=== PATIENT | male | born 1935 | race Caucasian/White ===

== ENCOUNTER 2018-11-15 22:48 | Inpatient (IN) | payer OTHER, BC ==
--- NOTE | 2018-11-15 22:49 | PDOC ---
History of Present Illness - General Stated Complaint: LEG PAIN History Source: Patient, Family - History of Present Illness Initial Comments: 11/15/18 23:42 The patient is an 83 year old male with a PMH of Dementia (Vascular vs. Alzheimers), HTN, COPD (not on home O2), Prostate CA (s/p resection), neuropathy , sick sinus syndrome (s/p pacemaker placement), recurrent UTI's and HLD who was BIBA after falling three times today. History obtained from and family @ bedside. State patient was found on the floor this morning in his bedroom. Patient ambulatory w/walker (baseline) after first fall. Patient later fell twice more today and was unable to bear weight following fall. Denies LOC as well as pre-fall chest pain, shortness of breath, lightheadedness , palpitations. Currently c/o LLE pain. Patient and patient's relocated yesterday to [place] from [place] to be closer to their adult children. notes h/o fall, first fall three years previous at which time patient was admitted to [facility] and pacemaker was placed. Most recent fall prior to today was 6 weeks previous. Patient's states patient's neurologist told patient he had neuropathy and gave him a referral to physical therapy however patient has not been able to start physical therapy 2/2 to their recent relocation to [place]. 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 Amol Lynn Neurologist: Dr. Sutton: Past History - Past Medical History Allergies/Adverse Reactions: Allergies Allergy/AdvReac Type Severity Reaction Status Date / Time No Known Allergies Allergy Verified 11/15/18 23:13 Review of Systems - Review of Systems Constitutional: No: Chills, Fever HEENTM: No: Recent change in vision Respiratory: No: Cough, Shortness of Breath Cardiac (ROS): No: Chest Pain, Lightheadedness, Palpitations, Syncope ABD/GI: No: Constipated, Diarrhea, Nausea, Vomiting *Physical Exam - Physical Exam Comments: 11/16/18 00:23 Awake, Alert, Verbal, moving all 4 extremities, pelvis stable General Appearance: Yes: Nourished, Appropriately Dressed HEENT: positive: Normal Voice, Hearing Grossly Normal Neck: positive: Trachea midline, Supple Respiratory/Chest: positive: Lungs Clear, Normal Breath Sounds Cardiovascular: positive: S1, S2 Extremity: positive: Normal Capillary Refill, Other (RLE: 2+ DP pulse, full ROM , anterior tibial tenderness; no tibial tuberosity tenderness) Integumentary: positive: Normal Color, Dry, Warm Neurologic: positive: Fully Oriented, Alert Heart Score/ECG Review - ECG Impressions Comment:: 11/16/18 01:46 HR 78, Ventricular paced rhythm, no SCHUYLER/STD/TWI, non-ischemic ECG ED Treatment Course - LABORATORY CBC & Chemistry Diagram: 11/15/18 23:50 11/15/18 23:50 Medical Decision Making - Medical Decision Making 11/15/18 23:51 83 year old male s/p multiple falls today. Baseline dementia. Frontal diagnosis: falls 2/2 UTI vs. Pacemaker dysfunction vs. worsening neuropathy vs. DE (less likely) vs TIA. VS unremarkable. Pelvis stable, full ROM of LLE, Anterior tibial tenderness (no tibial tuberosity tenderness on PE). Will obtain RLE imaging, Head CT, C-spine (C-spine precautions in place), Troponin x1 , Basic labs. Likely disposition is admission. Reassess. 11/15/18 23:59 Dr. Ly, Attending, discussed case w/patient's right of way man notes patient has h/o falls; MINH showed severe mitral regurgitation and diastolic dysfunction. 11/16/18 00:21 [employer] contacted for pacemaker interrogation. 11/16/18 00:25 My read of Tib/Fib XR shows no acute fracture ECG non-ischemic as documented in ECG section of EMR 11/16/18 00:26 CBC, CMP unremarkable Troponin pending 11/16/18 01:21 Patient reassessed @ bedside. Repeat BP 184/49 (Left) and 193/66 (Right) - will give OTD of patient's home HTN medications (Amlodipine 5 mg) and Losartan (100 mg) Head CT, UA pending Troponin (-) x1 11/16/18 01:[address] negative, C-spine negative. UA clean Will page hospitalist for admission as patient requires evaluation of frequent falls including full cardiac evaluation including pacemaker interrogation and MINH Patient and patient's @ bedside counseled on plan of care. 11/16/18 02:09 Case d/w Dr. Chavez - will admit to OBS Tele Clinical Impression: Falls 2/2 to neuropathy vs. pacemaker dysfunction vs. cardiac pathology including MR, CHF *DC/Admit/Observation/Transfer Diagnosis at time of Disposition: Fall - Discharge Dispostion Condition at time of disposition: Fair Decision to Admit order: Yes - Referrals - Patient Instructions - Post Discharge Activity
[2018-11-15 23:14] VITALS: BMI 25.8
--- NOTE | 2018-11-15 23:15 | PDOC ---
Attending Attestation - HPI HPI: 11/15/18 23:29 The patient is a 83 year old male, with a significant PMH of dementia, history of falls, peripheral neuropathy, hypertension, recurrent UTI, arrhythmia s/p pacemaker placement, COPD, who presents to the emergency department for evaluation of multiple falls occurring earlier today. As per , the patient was noted to fall several times today. She states the first two falls the patient was able to stand up with assistance. However, for the third fall the patient was unable to get back up and EMS was notified. At presentation, the patient has a complaint of RLE pain. The patient history is limited secondary to dementia. The patient denies chest pain, shortness of breath, headache and dizziness. Denies fever, chills, nausea, vomit, diarrhea and constipation. Denies dysuria, frequency, urgency and hematuria. Allergies: NKA Documentation prepared by Chandrakant Perez, acting as medical program specialist for Enedina Ly MD. - Physicial Exam PE: 11/15/18 23:30 GENERAL: Awake and alert, in no acute distress HEAD: No signs of trauma EYES: PERRLA, EOMI, sclera anicteric, conjunctiva clear ENT: Auricles normal inspection, hearing grossly normal, nares patent, oropharynx clear without exudates. Moist mucosa NECK: Normal ROM, supple, no lymphadenopathy, JVD, or masses LUNGS: Breath sounds equal, clear to auscultation bilaterally. No wheezes, and no crackles HEART: Regular rate and rhythm, normal S1 and S2, no murmurs, rubs or gallops ABDOMEN: Soft, nontender, normoactive bowel sounds. No guarding, no rebound. No masses EXTREMITIES: (+) Right tibia fibula irregular medial aspect. (+) Distal tibial step off, unclear if hematoma and soft tissue or bone. (+) Tenderness to palpation RLE. PT and DP pulses intact. No clubbing or cyanosis. No cords or erythema. NEUROLOGICAL: Cranial nerves II through XII grossly intact. Normal speech. SKIN: Warm, Dry, normal turgor, no rashes or lesions noted. <Chandrakant Perez - Last Filed: 11/15/18 23:29> - Resident Resident Name: Paz Mckeon - ED Attending Attestation I have performed the following: I have examined & evaluated the patient, The case was reviewed & discussed with the resident, I agree w/resident's findings & plan - Medical Decision Making 11/15/18 23:30 Pt takes flomax 0.4 daily atorvastatin 10 mg amlodipine 5mg losartan 100mg advair 250/50 finasteride 5mg Namzaric 14--10 CP 24 (memantine/donepazil- for alzheimers) Asa 81mg Pt's heel stainer is Dr. Genie Segura urologist John Paul Zamarripa [phone] vasc surg Eezquiel King [phone] Cards [phone] Sutton [phone] Ted Luna [phone] 11/15/18 23:36 11/16/18 07:[address] normal; he will be admitted for syncope workup <Enedina Ly - Last Filed: 11/16/18 07:32>
[2018-11-15] MEDS ORDERED: ACETAMINOPHEN 1000 MG/100 ML VIAL (NON FORMULARY) IVPB ONE (23:56)
[2018-11-15 23:59] LABS: BASO % 0.5 % (0-2.0); HEMATOCRIT 37.9 % (35.4-49); HEMOGLOBIN 13.1 GM/dL (11.7-16.9); LYMPH % 11.7 % (8-40); MCH 31.2 pg (25.7-33.7); MCHC 34.7 g/dl (32.0-35.9); MEAN PLT VOLUME 10.9 fl (7.5-11.1); MONO % 6.9 % (3.8-10.2); NEUT % 79.9 % (42.8-82.8); PLATELET COUNT 235 K/MM3 (134-434); RBC 4.21 M/mm3 (4.00-5.60); RDW 14.5 % (11.9-15.9); WHITE BLOOD COUNT 11.4 K/mm3 (4.0-10.0)
[2018-11-16 00:19] LABS: ALBUMIN 3.4 g/dl (3.4-5.0); ALK PHOS 87 U/L (45-117); ANION GAP 7 MMOL/L (8-16); BILIRUBIN,TOTAL 0.4 mg/dL (0.2-1); BLOOD UREA NITROGEN 30 mg/dL (7-18); CALCIUM 9.1 mg/dL (8.5-10.1); CHLORIDE 108 mmol/L (98-107); CO2 29 mmol/L (21-32); CREATININE 1.1 mg/dL (0.55-1.3); GLUCOSE,RANDOM 116 mg/dL (74-106); MAGNESIUM 2.4 mg/dL (1.8-2.4); POTASSIUM 3.8 mmol/L (3.5-5.1); SGOT/AST 31 U/L (15-37); SGPT/ALT 35 U/L (13-61); SODIUM 145 mmol/L (136-145); TOT PROT 6.7 g/dl (6.4-8.2)
[2018-11-16] MEDS ORDERED: amLODIPine BESYLATE 5 MG TABLET (FP) PO ONE ×2 (00:53→23:00)
[2018-11-16] MEDS ORDERED: LOSARTAN POTASSIUM 50 MG TABLET (FP) PO ONE (00:53)
[2018-11-16] MEDS ORDERED: amLODIPine BESYLATE 5 MG TABLET (FP) ONE (00:56)
[2018-11-16 01:56] LABS: URINE APPEARANCE CLEAR; URINE BILIRUBIN NEGATIVE (<2.0 mg/dL); URINE COLOR YELLOW; URINE GLUCOSE (UA) NEGATIVE (NEGATIVE); URINE KETONE NEGATIVE (NEGATIVE); URINE LEUK ESTERASE NEGATIVE (NEGATIVE); URINE NITRITE NEGATIVE (NEGATIVE); URINE PROTEIN NEGATIVE (NEGATIVE); URINE UROBILINOGEN NEGATIVE mg/dL (0.2-1.0)
--- NOTE | 2018-11-16 02:03 | HP ---
CHIEF COMPLAINT: frequent falls PCP: none History obtained from EMR as patient has baseline dementia and unreliable for history and family is not available at bedside. HISTORY OF PRESENT ILLNESS: 83 year old male with a PMH of Dementia (Vascular vs. Alzheimers), HTN, COPD ( not on home O2), Prostate CA (s/p resection), neuropathy, sick sinus syndrome (s /p pacemaker placement), recurrent UTI's dyslipidemia brought in by ambulance after fall at home x3 on 11/15. Upon questioning, patient says his right leg was giving him issues. Denied LOC. At baseline is ambulatory with walker. # ER course was notable for: (1) CT spine (2) head ct (3) Recent Travel: none reported PAST MEDICAL HISTORY: Dementia (Vascular vs. Alzheimers), HTN, COPD (not on home O2), Prostate CA (s/ p resection), neuropathy, sick sinus syndrome (s/p pacemaker placement), recurrent UTIs, DLP PAST SURGICAL HISTORY: prostate resection Social History: Smoking: no Alcohol: no Drugs: no Family History: no Allergies No Known Allergies Allergy (Verified 11/15/18 23:13) HOME MEDICATIONS: REVIEW OF SYSTEMS CONSTITUTIONAL: Absent: fever, chills, diaphoresis, generalized weakness, malaise, loss of appetite, weight change HEENT: Absent: rhinorrhea, nasal congestion, throat pain, throat swelling, difficulty swallowing, mouth swelling, ear pain, eye pain, visual changes CARDIOVASCULAR: Absent: chest pain, syncope, palpitations, irregular heart rate, lightheadedness , peripheral edema RESPIRATORY: Absent: cough, shortness of breath, dyspnea with exertion, orthopnea, wheezing, stridor, hemoptysis GASTROINTESTINAL: Absent: abdominal pain, abdominal distension, nausea, vomiting, diarrhea, constipation, melena, hematochezia GENITOURINARY: Absent: dysuria, frequency, urgency, hesitancy, hematuria, flank pain, genital pain MUSCULOSKELETAL: Absent: arthralgia, joint swelling, back pain, neck pain Present- myalgia, SKIN: Absent: rash, itching, pallor HEMATOLOGIC/IMMUNOLOGIC: Absent: easy bleeding, easy bruising, lymphadenopathy, frequent infections ENDOCRINE: Absent: unexplained weight gain, unexplained weight loss, heat intolerance, cold intolerance NEUROLOGIC: Absent: headache, focal weakness or paresthesias, dizziness, unsteady gait, seizure, mental status changes, bladder or bowel incontinence PSYCHIATRIC: Absent: anxiety, depression, suicidal or homicidal ideation, hallucinations. PHYSICAL EXAMINATION Vital Signs - 24 hr 11/15/18 22:48 Temperature 98.2 F Pulse Rate 103 H Respiratory 18 Rate Blood Pressure 195/101 H O2 Sat by Pulse 96 Oximetry (%) GENERAL: disoriented HEAD: Normal with no signs of trauma. EYES: Pupils equal, round and reactive to light, extraocular movements intact, sclera anicteric, conjunctiva clear. No lid lag. EARS, NOSE, THROAT: Ears normal, nares patent, oropharynx clear without exudates. Moist mucous membranes. NECK: Normal range of motion, supple without lymphadenopathy, JVD, or masses. LUNGS: Breath sounds equal, clear to auscultation bilaterally. No wheezes, and no crackles. No accessory muscle use. HEART: Regular rate and rhythm, normal S1 and S2 without murmur, rub or gallop. ABDOMEN: Soft, nontender, not distended, normoactive bowel sounds, no guarding, no rebound, no masses. No hepatomegaly or splenomegaly. MUSCULOSKELETAL: Normal range of motion at all joints. No bony deformities or tenderness. No CVA tenderness. UPPER EXTREMITIES: 2+ pulses, warm, well-perfused. No cyanosis. No clubbing. No peripheral edema. LOWER EXTREMITIES: 2+ pulses, warm, well-perfused. No tenderness. No peripheral edema. NEUROLOGICAL: disoriented to place and time PSYCHIATRIC: Cooperative. Good eye contact. Appropriate mood and affect. SKIN: Warm, dry, normal turgor, no rashes or lesions noted, normal capillary refill. Laboratory Results - last 24 hr 11/15/18 11/15/18 11/16/18 23:50 23:50 01:39 WBC 11.4 H RBC 4.21 Hgb 13.1 Hct 37.9 MCV 90.0 MCH 31.2 MCHC 34.7 RDW 14.5 Plt Count 235 MPV 10.9 Absolute Neuts (auto) 9.1 H Neutrophils % 79.9 Lymphocytes % 11.7 Monocytes % 6.9 Eosinophils % 1.0 Basophils % 0.5 Nucleated RBC % 0 Sodium 145 Potassium 3.8 Chloride 108 H Carbon Dioxide 29 Anion Gap 7 L BUN 30 H Creatinine 1.1 Creat Clearance w eGFR > 60 Random Glucose 116 H Calcium 9.1 Magnesium 2.4 Total Bilirubin 0.4 AST 31 ALT 35 Alkaline Phosphatase 87 Creatine Kinase 155 Creatine Kinase Index 2.0 CK-MB (CK-2) 3.2 Troponin I 0.03 Total Protein 6.7 Albumin 3.4 Urine Color Yellow Urine Appearance Clear Urine pH 6.0 Ur Specific [place] 1.019 Urine Protein Negative Urine Glucose (UA) Negative Urine Ketones Negative Urine Blood Negative Urine Nitrite Negative Urine Bilirubin Negative Urine Urobilinogen Negative Ur Leukocyte Esterase Negative imaging of right lower ext - reviewed. ekg reviewed. ASSESSMENT/PLAN: #83yo man brought in the ED after multiple falls at home. Physical exam and imaging studies unremarkable for signs of trauma. Falls likely mechanical in nature. Should r/o orthostatic hypotension. -observation -physical therapy evaluation -bed rest -fall precautions -f/u official imaging study reports- head CT, C spine CT, right lower extremity xrays -check orthostatics -transthoracic echo -cardiology eval for pacemaker interrogation #HTN- uncontrolled -c/w losartan and amlodipine #COPD -c/w advair #DVT ppx -SCDs Visit type - Emergency Visit Emergency Visit: Yes Care time: The patient presented to the Emergency Department on the above date and was hospitalized for further evaluation of their emergent condition. - New Patient This patient is new to me today: Yes Date on this admission: 11/16/18 - Critical Care Critical Care patient: No
[2018-11-16] MEDS ORDERED: SODIUM CHLORIDE 1,000 ML IV SCH (02:15)
[2018-11-16] MEDS ORDERED: TAMSULOSIN HCL 0.4 MG CAP PO ONE (02:38)
[2018-11-16] MEDS ORDERED: TAMSULOSIN HCL 0.4 MG CAP ONE (05:26)
[2018-11-16 06:41] LABS: BASO % 0.4 % (0-2.0); EOS % 2.2 % (0-4.5); HEMATOCRIT 38.2 % (35.4-49); HEMOGLOBIN 12.5 GM/dL (11.7-16.9); LYMPH % 13.1 % (8-40); MCH 29.6 pg (25.7-33.7); MCHC 32.7 g/dl (32.0-35.9); MEAN CELL VOLUME 90.7 fl (80-96); MEAN PLT VOLUME 10.5 fl (7.5-11.1); MONO % 8.4 % (3.8-10.2); NEUT % 75.9 % (42.8-82.8); PLATELET COUNT 197 K/MM3 (134-434); RBC 4.21 M/mm3 (4.00-5.60); RDW 14.6 % (11.9-15.9); WHITE BLOOD COUNT 9.9 K/mm3 (4.0-10.0)
[2018-11-16 07:06] LABS: ANION GAP 6 MMOL/L (8-16); BLOOD UREA NITROGEN 26 mg/dL (7-18); CALCIUM 8.8 mg/dL (8.5-10.1); CHLORIDE 110 mmol/L (98-107); CO2 28 mmol/L (21-32); CREATININE 0.9 mg/dL (0.55-1.3); GLUCOSE,RANDOM 107 mg/dL (74-106); POTASSIUM 3.5 mmol/L (3.5-5.1); SODIUM 143 mmol/L (136-145)
[2018-11-16] MEDS: ASPIRIN 81 MG CHEWABLE TABLETS PO SCH (09:31)
[2018-11-16] MEDS: LOSARTAN POTASSIUM 50 MG TABLET (FP) PO SCH (09:31)
[2018-11-16] MEDS: amLODIPine BESYLATE 5 MG TABLET (FP) PO SCH (09:31)
[2018-11-16] MEDS: FLUTICASONE/SALMETEROL 100 MCG/50 MCG DISKUS IH SCH ×2 (10:00→22:54)
--- NOTE | 2018-11-16 16:42 | CON.CARD ---
Consult Consult Specialty:: cardiology Reason for Consultation:: falls - History of Present Illness Chief Complaint: Pt is disoriented x 3; c/o how the sheets are arranged; unsure if family was visiting; denies chest pain or dizziness History of Present Illness: The patient is an 83 year old male with a PMH of Dementia (Vascular vs. Alzheimers), HTN, COPD (not on home O2), Prostate CA (s/p resection), neuropathy , sick sinus syndrome (s/p pacemaker placement), recurrent UTI's and HLD who was BIBA after falling three times today. History obtained from and family @ bedside. State patient was found on the floor this morning in his bedroom. Patient ambulatory w/walker (baseline) after first fall. Patient later fell twice more today and was unable to bear weight following fall. Denies LOC as well as pre-fall chest pain, shortness of breath, lightheadedness , palpitations. Currently c/o LLE pain. Patient and patient's relocated yesterday to [place] from [place] to be closer to their adult children. notes h/o fall, first fall three years previous at which time patient was admitted to [facility] and pacemaker was placed. Most recent fall prior to today was 6 weeks previous. Patient's states patient's neurologist told patient he had neuropathy and gave him a referral to physical therapy however patient has not been able to start physical therapy 2/2 to their recent relocation to [place]. 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 Amol Lynn Neurologist: Dr. Sutton: - History Source History Provided By: Medical Record Limitations to Obtaining History: Dementia - Past Medical History MS ACCESS DATABASE DEVELOPER: Yes: Alzheimer's Cardio/Vascular: Yes: HTN, Hyperlipdemia Pulmonary: Yes: COPD - Past Surgical History Past Surgical History: Yes: Permanent Pacemaker - Alcohol/Substance Use Hx Alcohol Use: No - Smoking History Smoking history: Former smoker Have you smoked in the past 12 months: No If you are a former smoker, when did you quit?: 30 yrs ago Home Medications - Allergies Allergies/Adverse Reactions: Allergies Allergy/AdvReac Type Severity Reaction Status Date / Time No Known Allergies Allergy Verified 11/15/18 23:13 Review of Systems Unable to obtain ROS, reason: dementia - Risk Factors Known Risk Factors: Yes: Age, Gender, Hypercholesterolemia, Hypertension, Physical Inactivity, Other (copd; dementia) Vital Signs: Vital Signs Temperature 98 F 11/16/18 14:43 Pulse Rate 70 11/16/18 14:43 Respiratory Rate 18 11/16/18 14:43 Blood Pressure 146/54 L 11/16/18 14:43 O2 Sat by Pulse Oximetry (%) 97 11/16/18 10:00 Constitutional: Yes: Anxious, Thin Eyes: Yes: WNL HENT: Yes: WNL Neck: Yes: WNL Respiratory: Yes: WNL Gastrointestinal: Yes: Soft Renal/: No: Anuria Cardiovascular: Yes: Regular Rate and Rhythm JVD: No Carotid Bruit: No PMI: Non-Displaced Heart Sounds: Yes: S1, Split S2 Murmur: Yes: Systolic Murmur, Grade 2 Musculoskeletal: Yes: Muscle Weakness Extremities: Yes: WNL Edema: No Peripheral Pulses WNL: Yes Integumentary: Yes: WNL Neurological: Yes: Confusion, Weakness Psychiatric: Yes: Other (dementia) - Other Data Labs, Other Data: CBC, BMP 11/16/18 06:14 11/16/18 06:00 Troponin, BNP 11/15/18 23:50 Troponin I 0.03 Troponin, BNP 11/15/18 23:50 Troponin I 0.03 Abnormal Lab Results 11/16/18 06:00 Chloride 110 H Anion Gap 6 L BUN 26 H Random Glucose 107 H Prior Cardiac Procedures: Other (PPM for SSS) Imaging - Results EKG: Image Reviewed (ventricula paced rhythm) Problem List - Problems (1) Falls Assessment/Plan: r/o syncope. Hx neuropathy. F/u orthostatic vital signs. Avoid dehydration. ECHO for LVEF. Carotid artery US. Code(s): W19.XXXA - UNSPECIFIED FALL, INITIAL ENCOUNTER (2) History of permanent cardiac pacemaker placement Code(s): Z95.0 - PRESENCE OF CARDIAC PACEMAKER (3) Neuropathy Code(s): G62.9 - POLYNEUROPATHY, UNSPECIFIED (4) COPD (chronic obstructive pulmonary disease) Code(s): J44.9 - CHRONIC OBSTRUCTIVE PULMONARY DISEASE, UNSPECIFIED (5) HTN (hypertension) Assessment/Plan: on losartan and amlodipine (consider increasing the latter to 10 mg daily, in view of continued BP elevation). Code(s): I10 - ESSENTIAL (PRIMARY) HYPERTENSION (6) Hyperlipidemia Assessment/Plan: f/u lipid panel. on atorvastatin. Code(s): E78.5 - HYPERLIPIDEMIA, UNSPECIFIED (7) Dementia Assessment/Plan: F/u workup. Advanced condition must be taken into account before any aggressive measures are taken for physical condition. Code(s): F03.90 - UNSPECIFIED DEMENTIA WITHOUT BEHAVIORAL DISTURBANCE (8) Prostate CA Code(s): C61 - MALIGNANT NEOPLASM OF PROSTATE
--- NOTE | 2018-11-16 16:56 | EKG ---
Test Reason : Blood Pressure : / mmHG Vent. Rate : 078 BPM Atrial Rate : 078 BPM P-R Int : 000 ms QRS Dur : 168 ms QT Int : 440 ms P-R-T Axes : 053 -57 098 degrees QTc Int : 501 ms POOR DATA QUALITY, INTERPRETATION MAY BE ADVERSELY AFFECTED Ventricular-paced rhythm ABNORMAL ECG NO PREVIOUS ECGS AVAILABLE Confirmed by MD Abisai, Omar ([id number]) on 11/16/2018 4:55:56 PM Referred By: Confirmed By:Omar Barone MD
[2018-11-16] MEDS ORDERED: PT OWN MED DRAWER 7, Y5N ONE (22:46)
[2018-11-16] MEDS: ATORVASTATIN CA 10 MG TABLET (FP) PO SCH (22:54)
[2018-11-17] MEDS ORDERED: hydrALAZINE HCL 20 MG/ML VIAL IVPUSH ONE (02:41)
[2018-11-17] MEDS: amLODIPine BESYLATE 5 MG TABLET (FP) PO SCH (09:17)
[2018-11-17] MEDS: LOSARTAN POTASSIUM 50 MG TABLET (FP) PO SCH (09:17)
[2018-11-17] MEDS: ASPIRIN 81 MG CHEWABLE TABLETS PO SCH (09:17)
[2018-11-17 09:46] LABS: BASO % 0.3 % (0-2.0); HEMATOCRIT 37.9 % (35.4-49); HEMOGLOBIN 13.4 GM/dL (11.7-16.9); LYMPH % 10.7 % (8-40); MCH 31.4 pg (25.7-33.7); MCHC 35.4 g/dl (32.0-35.9); MEAN CELL VOLUME 88.6 fl (80-96); MEAN PLT VOLUME 10.2 fl (7.5-11.1); PLATELET COUNT 251 K/MM3 (134-434); RBC 4.28 M/mm3 (4.00-5.60); RDW 14.4 % (11.9-15.9); WHITE BLOOD COUNT 10.7 K/mm3 (4.0-10.0)
[2018-11-17] MEDS: FLUTICASONE/SALMETEROL 100 MCG/50 MCG DISKUS IH SCH ×2 (10:26→21:45)
[2018-11-17 10:27] LABS: ALBUMIN 3.1 g/dl (3.4-5.0); ALK PHOS 80 U/L (45-117); ANION GAP 9 MMOL/L (8-16); BILIRUBIN,TOTAL 0.8 mg/dL (0.2-1); BLOOD UREA NITROGEN 19 mg/dL (7-18); CALCIUM 8.7 mg/dL (8.5-10.1); CHLORIDE 108 mmol/L (98-107); CO2 24 mmol/L (21-32); GLUCOSE,RANDOM 139 mg/dL (74-106); PHOSPHOROUS 3.2 mg/dL (2.5-4.9); POTASSIUM 3.6 mmol/L (3.5-5.1); SGOT/AST 15 U/L (15-37); SGPT/ALT 26 U/L (13-61); SODIUM 142 mmol/L (136-145); TOT PROT 6.1 g/dl (6.4-8.2)
--- NOTE | 2018-11-17 10:55 | ECHO ---
Version: 1 Name: TRAY ALVARADO Exam: Adult Echocardiogram Study Date: 11/17/2018, 7:53 AM Age: 83 Years MMode/2D Measurements & Calculations IVSd: 1.22 cm LVIDs: 3.1 cm LVIDd: 4.4 cm LVPWd: 1.27 cm Ao root diam: 2.8 cm LA dimension: 3.3 cm Doppler Measurements & Calculations MV E max sanford: 61.8 cm/sec Med E/e': 11.4 MV A max sanford: 166.3 cm/sec Med Peak E' Sanford: 5.4 cm/sec MV E/A: 0.37 Lat E/e': 14.6 Lat Peak E' Sanford: 4.2 cm/sec AI P1/2t: 441.4 msec TR max sanford: 299.3 cm/sec TR max P.9 mmHg Procedure The study was technically difficult with many images being suboptimal in quality. Left Ventricle The left ventricular size, thickness and function are normal. The left ventricular ejection fraction is normal. Septal motion is consistent with conduction abnormality. Right Ventricle The right ventricle is normal in size and function. There is a pacemaker lead in the right ventricle . Atria Normal left and right atrial size and function. Mitral Valve There is moderate mitral valve thickening. There is no mitral valve stenosis. There is mild to moder ate mitral regurgitation. Tricuspid Valve There is mild to moderate tricuspid valve thickening. There is no tricuspid stenosis. There is mild to moderate tricuspid regurgitation. Right ventricular systolic pressure is elevated at 40-50mmHg. Aortic Valve The aortic valve is not well visualized. No hemodynamically significant valvular aortic stenosis. Mi ld to moderate aortic regurgitation. Pulmonic Valve The pulmonic valve is not well visualized. Great Vessels The aortic root is normal size. Pericardium/Pleura There is no pericardial effusion. Summary Statements The left ventricular size, thickness and function are normal The left ventricular ejection fraction is normal. There is a pacemaker lead in the right ventricle. There is mild to moderate tricuspid regurgitation. Right ventricular systolic pressure is elevated at 40-50mmHg. The study was technically difficult with many images being suboptimal in quality. There is moderate mitral valve thickening. Mild to moderate aortic regurgitation. There is mild to moderate mitral regurgitation. MD Terry Marley 11/17/2018, 10:54 AM Ordering Physician: Sandor Chavez Referring Physician: Sandor Chavez Performed By: Radha Hernandez
--- NOTE | 2018-11-17 11:39 | PN ---
Physical Exam: SUBJECTIVE: Patient seen and examined this AM. He currently has no complaints and states that he is feeling better today. OBJECTIVE: Vital Signs Period Temp Pulse Resp BP Sys/Dale Pulse Ox Last 24 Hr 97.3 F-98.3 F 70-84 18-20 140-188/54-86 95 GENERAL: Alert, oriented only to self, no acute distress HEAD: Normocephalic, atraumatic. EYES: PERRL, no scleral icterus EARS, NOSE, THROAT: oropharynx clear without exudates. Moist mucous membranes. NECK: supple without lymphadenopathy LUNGS: CTA b/l, no crackles or wheezes HEART: Regular rate and rhythm, normal S1 and S2 without murmur ABDOMEN: Soft, nontender to palpation, normoactive bowel sounds MUSCULOSKELETAL: No bony deformities or tenderness. EXTREMITIES: 2+ pulses, warm, well-perfused. No peripheral edema. NEUROLOGICAL: Cranial nerves II-XII grossly intact. Normal speech. PSYCHIATRIC: Cooperative. Good eye contact. Appropriate mood and affect. SKIN: Warm, dry, no rashes or lesions noted Laboratory Results - last 24 hr 11/17/18 11/17/18 09:15 09:15 WBC 10.7 H RBC 4.28 Hgb 13.4 Hct 37.9 MCV 88.6 MCH 31.4 MCHC 35.4 RDW 14.4 Plt Count 251 D MPV 10.2 Absolute Neuts (auto) 8.9 H Neutrophils % 83.0 H Lymphocytes % 10.7 Monocytes % 5.0 Eosinophils % 1.0 Basophils % 0.3 Nucleated RBC % 0 Sodium 142 Potassium 3.6 Chloride 108 H Carbon Dioxide 24 Anion Gap 9 BUN 19 H Creatinine 1.0 Creat Clearance w eGFR > 60 Random Glucose 139 H Calcium 8.7 Phosphorus 3.2 Magnesium 2.0 Total Bilirubin 0.8 AST 15 ALT 26 Alkaline Phosphatase 80 Total Protein 6.1 L Albumin 3.1 L Active Medications Generic Name Dose Route Start Last Admin Trade Name Freq PRN Reason Stop Dose Admin Amlodipine Besylate 5 mg 11/16/18 10:00 11/17/18 09:17 Norvasc - PO 5 mg DAILY MONTY Administration Aspirin 81 mg 11/16/18 10:00 11/17/18 09:17 Asa - PO 81 mg DAILY MONTY Administration Atorvastatin Calcium 10 mg 11/16/18 22:00 11/16/18 22:54 Lipitor - PO 10 mg HS MONTY Administration Losartan Potassium 100 mg 11/16/18 10:00 11/17/18 09:17 Cozaar - PO 100 mg DAILY MONTY Administration Fluticasone/Salmeterol 1 puff 11/16/18 10:00 11/17/18 10:26 Advair 100mcg/50mcg - IH 1 puff BID MONTY Administration ASSESSMENT/PLAN: 83yo man brought in the ED after multiple falls at home. Physical exam and imaging studies unremarkable for signs of trauma. Falls likely mechanical in nature. Repeated Falls -Pt with numerous repeated falls, likely mechanical in nature -PT eval recommended SNF for rehab -Extensive imaging negative for fracture or IC bleed -Cardiology consult appreciated -Carotid US pending -ECHO normal LV size, function, EF HTN -Currently uncontrolled -Norvasc 5 mg PO Daily -Losartan 100 mg PO Daily -Has required addition doses of norvasc and required hydralazine overnight -Will monitor and increase as needed COPD -Advair 1 puff BID DVT Prophylaxis -Heparin 5000 units SQ TID FEN -Fluids: none -Electrolytes: No electrolyte abnormalities, BMP in AM -Nutrition: Na controlled diet Disposition Telemetry, can likely transfer to med/surg pending echo Visit type - Emergency Visit Emergency Visit: Yes ED Registration Date: 11/17/18 Care time: The patient presented to the Emergency Department on the above date and was hospitalized for further evaluation of their emergent condition. - New Patient This patient is new to me today: Yes Date on this admission: 11/17/18 - Critical Care Critical Care patient: No
[2018-11-17] MEDS ORDERED: PT OWN MED DRAWER 7, Y5N ONE (13:41)
[2018-11-17] MEDS: HEPARIN NA (PORCINE) 5,000 UNITS/ML 1ML VIAL SQ SCH ×2 (15:02→21:44)
--- NOTE | 2018-11-17 16:28 | PN ---
Teaching Attending Note Name of Resident: Ventura Romero ATTENDING PHYSICIAN STATEMENT I saw and evaluated the patient. I reviewed the resident's note and discussed the case with the resident. I agree with the resident's findings and plan as documented. SUBJECTIVE: this is an 83 year old male with a PMH of Dementia, HTN, COPD, Prostate CA (s/p resection), neuropathy, sick sinus syndrome (s/p pacemaker placement), recurrent UTI's, dyslipidemia admitted for evaluation of syncope. OBJECTIVE: s1 and s2 RRR lungs CTA good air entry abdomen soft non-tender ASSESSMENT AND PLAN: Repeated Falls possible due to gait instability -PT eval recommended SNF for rehab HTN -d/c amlodipine 5 mg PO Daily and start amlodipine increase to 10mg -Losartan 100 mg PO Daily COPD -Advair 1 puff BID DVT Prophylaxis -Heparin 5000 units SQ TID FEN -Fluids: none -Electrolytes: No electrolyte abnormalities, BMP in AM -Nutrition: Na controlled diet
[2018-11-17] MEDS: ATORVASTATIN CA 10 MG TABLET (FP) PO SCH (21:44)
[2018-11-18] MEDS: LOSARTAN POTASSIUM 50 MG TABLET (FP) PO SCH ×2 (05:47→09:13)
[2018-11-18] MEDS: amLODIPine BESYLATE 5 MG TABLET (FP) PO SCH ×2 (05:48→09:13)
[2018-11-18] MEDS: HEPARIN NA (PORCINE) 5,000 UNITS/ML 1ML VIAL SQ SCH ×3 (05:49→21:36)
[2018-11-18 06:29] LABS: HEMATOCRIT 39.1 % (35.4-49); HEMOGLOBIN 12.8 GM/dL (11.7-16.9); MCH 29.4 pg (25.7-33.7); MCHC 32.7 g/dl (32.0-35.9); MEAN PLT VOLUME 10.5 fl (7.5-11.1); PLATELET COUNT 234 K/MM3 (134-434); RBC 4.35 M/mm3 (4.00-5.60); RDW 14.3 % (11.9-15.9); WHITE BLOOD COUNT 8.7 K/mm3 (4.0-10.0)
[2018-11-18 07:12] LABS: ANION GAP 9 MMOL/L (8-16); BLOOD UREA NITROGEN 22 mg/dL (7-18); CALCIUM 8.2 mg/dL (8.5-10.1); CHLORIDE 110 mmol/L (98-107); CO2 23 mmol/L (21-32); GLUCOSE,RANDOM 98 mg/dL (74-106); MAGNESIUM 2.1 mg/dL (1.8-2.4); PHOSPHOROUS 3.8 mg/dL (2.5-4.9); POTASSIUM 3.8 mmol/L (3.5-5.1); SODIUM 142 mmol/L (136-145)
[2018-11-18] MEDS: FLUTICASONE/SALMETEROL 100 MCG/50 MCG DISKUS IH SCH ×2 (09:12→21:37)
[2018-11-18] MEDS: ASPIRIN 81 MG CHEWABLE TABLETS PO SCH (09:12)
--- NOTE | 2018-11-18 12:33 | PN ---
Physical Exam: SUBJECTIVE: Patient seen and examined, this AM. He currently states he is feeling much better and has no subjective complaints. OBJECTIVE: Vital Signs Period Temp Pulse Resp BP Sys/Dale Pulse Ox Last 24 Hr 97.6 F-98.4 F 73-80 18-20 138-197/54-88 92-95 GENERAL: Alert, oriented only to self, no acute distress HEAD: Normocephalic, atraumatic. EYES: PERRL, no scleral icterus EARS, NOSE, THROAT: oropharynx clear without exudates. Moist mucous membranes. NECK: supple without lymphadenopathy LUNGS: CTA b/l, no crackles or wheezes HEART: Regular rate and rhythm, normal S1 and S2 without murmur ABDOMEN: Soft, nontender to palpation, normoactive bowel sounds MUSCULOSKELETAL: No bony deformities or tenderness. EXTREMITIES: 2+ pulses, warm, well-perfused. No peripheral edema. NEUROLOGICAL: Cranial nerves II-XII grossly intact. Normal speech. PSYCHIATRIC: Cooperative. Good eye contact. Appropriate mood and affect. SKIN: Warm, dry, no rashes or lesions noted Laboratory Results - last 24 hr 11/18/18 11/18/18 05:30 05:30 WBC 8.7 RBC 4.35 Hgb 12.8 Hct 39.1 MCV 90.0 MCH 29.4 MCHC 32.7 RDW 14.3 Plt Count 234 MPV 10.5 Sodium 142 Potassium 3.8 Chloride 110 H Carbon Dioxide 23 Anion Gap 9 BUN 22 H Creatinine 1.0 Creat Clearance w eGFR > 60 Random Glucose 98 Calcium 8.2 L Phosphorus 3.8 Magnesium 2.1 Active Medications Generic Name Dose Route Start Last Admin Trade Name Joséq PRN Reason Stop Dose Admin Amlodipine Besylate 5 mg 11/16/18 10:00 11/18/18 09:13 Norvasc - PO Not Given DAILY MONTY Aspirin 81 mg 11/16/18 10:00 11/18/18 09:12 Asa - PO 81 mg DAILY MONTY Administration Atorvastatin Calcium 10 mg 11/16/18 22:00 11/17/18 21:44 Lipitor - PO 10 mg HS MONTY Administration Heparin Sodium (Porcine) 5,000 unit 11/17/18 14:00 11/18/18 05:49 Heparin - SQ 5,000 unit TID MONTY Administration Losartan Potassium 100 mg 11/16/18 10:00 11/18/18 09:13 Cozaar - PO Not Given DAILY [facility]ONTY Fluticasone/Salmeterol 1 puff 11/16/18 10:00 11/18/18 09:12 Advair 100mcg/50mcg - IH 1 puff BID [facility]ONTY Administration ASSESSMENT/PLAN: 83yo man brought in the ED after multiple falls at home. Physical exam and imaging studies unremarkable for signs of trauma. Falls likely mechanical in nature. Repeated Falls -Pt with numerous repeated falls, likely mechanical in nature -PT eval recommended SNF for rehab -Extensive imaging negative for fracture or IC bleed -Cardiology consult appreciated -Carotid US with atherosclerosis on left 60-79% -Carotid atherosclerosis unlikely causing syncope or symptoms -Vascular Surgery consult, no surgical intervention at this time, repeat carotid US in 6 months -ECHO normal LV size, function, EF HTN -Currently uncontrolled -Norvasc 5 mg PO Daily -Losartan 100 mg PO Daily -Has required addition doses of norvasc and required hydralazine overnight -Will monitor and increase as needed COPD -Advair 1 puff BID DVT Prophylaxis -Heparin 5000 units SQ TID FEN -Fluids: none -Electrolytes: No electrolyte abnormalities, BMP in AM -Nutrition: Na controlled diet Disposition Telemetry Visit type - Emergency Visit Emergency Visit: Yes ED Registration Date: 11/17/18 Care time: The patient presented to the Emergency Department on the above date and was hospitalized for further evaluation of their emergent condition. - New Patient This patient is new to me today: No - Critical Care Critical Care patient: No
[2018-11-18] MEDS ORDERED: LACTATED RINGERS SOLUTION 1,000 ML/1,000 ML INFUS.BAG IV SCH (12:45)
--- NOTE | 2018-11-18 15:59 | CONSULT ---
- Consultation REQUESTING PROVIDER: CONSULT REQUEST: We have been asked to surgically evaluate this patient for ( carotid stenosis). PCP:Tamela Loomis MD HISTORY OF PRESENT ILLNESS: 83 y/o M PMHx of Dementia (Vascular vs. Alzheimers) , HTN, COPD (not on home O2), Prostate CA (s/p resection), neuropathy, sick sinus syndrome (s/p pacemaker placement), recurrent UTI's, dyslipidemia brought in by ambulance after fall at home x3 on 11/15. Vascular consulted for evaluation due to findings of carotid stenosis on carotid duplex. Pt poor historian due to h/o dementia. Reports he does not know why he is in the hospital but wants to leave. Feels well overall, only complaint is issues with his L knee (weakness/pain) with ambulation. Denies known h/o cva/tia, ue/le weakness, amaurosis fugax, difficulty with speech, prior vascular evaluation, cp /sob, n/v/d. Has h./o social tobacco use, quit >30 years ago. At baseline pt is ambulatory with walker. PMHx: as above PSHx: as above Allergies Allergy/AdvReac Type Severity Reaction Status Date / Time No Known Allergies Allergy Verified 11/15/18 23:13 REVIEW OF SYSTEMS: CONSTITUTIONAL: Absent: fever, chills CARDIOVASCULAR: Absent: chest pain RESPIRATORY: Absent: cough, shortness of breath GASTROINTESTINAL: Absent: abdominal pain PHYSICAL EXAM: GENERAL: Awake, alert, oriented only to self HEAD: Normal with no signs of trauma. No facial droop noted, smile symmetric, tongue protrudes midline. LUNGS: Unlabored on RA. No accessory muscle use. HEART: Regular rate and rhythm. ABDOMEN: Soft, nontender, not distended, normoactive bowel sounds. 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 PSYCH: Cooperative. Good eye contact. Vital Signs Temperature 98.3 F 11/18/18 14:00 Pulse Rate 80 11/18/18 14:00 Respiratory Rate 18 11/18/18 09:00 Blood Pressure 156/70 11/18/18 14:00 O2 Sat by Pulse Oximetry (%) 95 11/18/18 09:00 Lab Results WBC 8.7 K/mm3 (4.0-10.0) 11/18/18 05:30 RBC 4.35 M/mm3 (4.00-5.60) 11/18/18 05:30 Hgb 12.8 GM/dL (11.7-16.9) 11/18/18 05:30 Hct 39.1 % (35.4-49) 11/18/18 05:30 MCV 90.0 fl (80-96) 11/18/18 05:30 MCHC 32.7 g/dl (32.0-35.9) 11/18/18 05:30 RDW 14.3 % (11.9-15.9) 11/18/18 05:30 Plt Count 234 K/MM3 (134-434) 11/18/18 05:30 Sodium 142 mmol/L (136-145) 11/18/18 05:30 Potassium 3.8 mmol/L (3.5-5.1) 11/18/18 05:30 Chloride 110 mmol/L (98-107) H 11/18/18 05:30 Carbon Dioxide 23 mmol/L (21-32) 11/18/18 05:30 Anion Gap 9 MMOL/L (8-16) 11/18/18 05:30 BUN 22 mg/dL (7-18) H 11/18/18 05:30 Creatinine 1.0 mg/dL (0.55-1.3) 11/18/18 05:30 Random Glucose 98 mg/dL (74-106) 11/18/18 05:30 Calcium 8.2 mg/dL (8.5-10.1) L 11/18/18 05:30 CTH (11/16): Moderate cerebral atrophy with chronic deep white matter periventircular ischemic change without evidence of acute hemorrhage, mass lesion or midline shift. Carotid Duplex (11/17/18): Moderate atherosclerotic disease, L>R with a stenosis 60-79% range involving the left carotid bifurcation. On the left side there is a moderate velocity increase at the carotid bifurcation with a peak systolic velocity of 151cm/s. A/P: 83 y/o M PMHx of Dementia (Vascular vs. Alzheimers), HTN, COPD (not on home O2), Prostate CA (s/p resection), neuropathy, sick sinus syndrome (s/p pacemaker placement), recurrent UTI's, dyslipidemia brought in by ambulance after fall at home x3 on 11/15. Vascular consulted for evaluation of carotid duplex findings. -No acute surgical intervention at this time -Recommend repeat carotid duplex in 6 months -Continue ASA 81mg and statin -F/U with Dr Cortez as outpt in 6 months for repeat carotid duplex above d/w attending Dr Cortez
--- NOTE | 2018-11-18 16:18 | PN ---
Teaching Attending Note Name of Resident: Ventura Romero ATTENDING PHYSICIAN STATEMENT I saw and evaluated the patient. I reviewed the resident's note and discussed the case with the resident. I agree with the resident's findings and plan as documented. SUBJECTIVE: evaluated the patient today, he has no complaints at this time. He has dementia and keeps on asking if he could walk to the bathroom. OBJECTIVE: in no distress very pleasant and well kept elderly M. MMM No occular discharge No nasal discharge CVS:S1S2 CTAB Abd:BS+, NT/ND EXT: no edema alert, oriented to person and place Last Vital Signs Temp Pulse Resp BP Pulse Ox 98.3 F 80 18 156/70 95 11/18/18 14:00 11/18/18 14:00 11/18/18 09:00 11/18/18 14:00 11/18/18 09:00 Current Medications Generic Name Dose Route Start Last Admin Trade Name Freq PRN Reason Stop Dose Admin Amlodipine Besylate 5 mg 11/16/18 10:00 11/18/18 09:13 Norvasc - PO Not Given DAILY MONTY Aspirin 81 mg 11/16/18 10:00 11/18/18 09:12 Asa - PO 81 mg DAILY MONTY Administration Atorvastatin Calcium 10 mg 11/16/18 22:00 11/17/18 21:44 Lipitor - PO 10 mg HS MONTY Administration Heparin Sodium (Porcine) 5,000 unit 11/17/18 14:00 11/18/18 14:33 Heparin - SQ 5,000 unit TID MONTY Administration Lactated Ringer's 1,000 ml in 1,000 mls @ 75 mls/hr 11/18/18 12:45 Lactated Ringers Solution IV 11/19/18 02:04 ASDIR MONTY Losartan Potassium 100 mg 11/16/18 10:00 11/18/18 09:13 Cozaar - PO Not Given DAILY MONTY Fluticasone/Salmeterol 1 puff 11/16/18 10:00 11/18/18 09:12 Advair 100mcg/50mcg - IH 1 puff BID MONTY Administration CBCD WBC 8.7 K/mm3 (4.0-10.0) 11/18/18 05:30 RBC 4.35 M/mm3 (4.00-5.60) 11/18/18 05:30 Hgb 12.8 GM/dL (11.7-16.9) 11/18/18 05:30 Hct 39.1 % (35.4-49) 11/18/18 05:30 MCV 90.0 fl (80-96) 11/18/18 05:30 MCHC 32.7 g/dl (32.0-35.9) 11/18/18 05:30 RDW 14.3 % (11.9-15.9) 11/18/18 05:30 Plt Count 234 K/MM3 (134-434) 11/18/18 05:30 MPV 10.5 fl (7.5-11.1) 11/18/18 05:30 CMP Sodium 142 mmol/L (136-145) 11/18/18 05:30 Potassium 3.8 mmol/L (3.5-5.1) 11/18/18 05:30 Chloride 110 mmol/L (98-107) H 11/18/18 05:30 Carbon Dioxide 23 mmol/L (21-32) 11/18/18 05:30 Anion Gap 9 MMOL/L (8-16) 11/18/18 05:30 BUN 22 mg/dL (7-18) H 11/18/18 05:30 Creatinine 1.0 mg/dL (0.55-1.3) 11/18/18 05:30 Creat Clearance w eGFR > 60 (>60) 11/18/18 05:30 Random Glucose 98 mg/dL (74-106) 11/18/18 05:30 Calcium 8.2 mg/dL (8.5-10.1) L 11/18/18 05:30 Total Bilirubin 0.8 mg/dL (0.2-1) 11/17/18 09:15 AST 15 U/L (15-37) 11/17/18 09:15 ALT 26 U/L (13-61) 11/17/18 09:15 Alkaline Phosphatase 80 U/L (45-117) 11/17/18 09:15 Total Protein 6.1 g/dl (6.4-8.2) L 11/17/18 09:15 Albumin 3.1 g/dl (3.4-5.0) L 11/17/18 09:15 CARDIAC ENZYMES Creatine Kinase 155 IU/L (26-308) 11/15/18 23:50 Troponin I 0.03 ng/ml (0.00-0.05) 11/15/18 23:50 ASSESSMENT AND PLAN: Fall: mechanical: PT eval is to go to [facility] for unsteady gait dementia: C/W home medication unclear why had carotid US: has one side disease, less likely cause of fall, will F/U with vascular, at this time for PVD he needs to be on high dose statin. is on ASA HTN: is on losartan,amlodipine DC IVF and encouagre PO intake Dispo': [facility]
[2018-11-18] MEDS ORDERED: amLODIPine BESYLATE 5 MG TABLET (FP) PO ONE (17:14)
[2018-11-18] MEDS: ATORVASTATIN CA 10 MG TABLET (FP) PO SCH (21:36)
--- NOTE | 2018-11-19 03:01 | PN ---
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 Denies chest pain. History of Present Illness: The patient is an 83 year old male with a PMH of Dementia (Vascular vs. Alzheimers), HTN, COPD (not on home O2), Prostate CA (s/p resection), neuropathy , sick sinus syndrome (s/p pacemaker placement), recurrent UTI's and HLD who was BIBA after falling three times today. History obtained from and family @ bedside. State patient was found on the floor this morning in his bedroom. Patient ambulatory w/walker (baseline) after first fall. Patient later fell twice more today and was unable to bear weight following fall. Denies LOC as well as pre-fall chest pain, shortness of breath, lightheadedness , palpitations. Currently c/o LLE pain. Patient and patient's relocated yesterday to [place] from [place] to be closer to their adult children. notes h/o fall, first fall three years previous at which time patient was admitted to [facility] and pacemaker was placed. Most recent fall prior to today was 6 weeks previous. Patient's states patient's neurologist told patient he had neuropathy and gave him a referral to physical therapy however patient has not been able to start physical therapy 2/2 to their recent relocation to [place]. NKDA Surgical: L knee repair,abdominal hernia, PPM placement Social: former smoker, denies other toxic habits PMD: none in [place]; Burn Center Nurse in [place]: Dr. Genie Segura Professional Tutor in [place]: Dr. Amol Lynn Neurologist: Dr. Sutton: - Current Medication List Current Medications: Active Medications Amlodipine Besylate (Norvasc -) 10 mg PO DAILY [facility] Aspirin (Asa -) 81 mg PO DAILY [facility] Last Admin: 11/18/18 09:12 Dose: 81 mg Atorvastatin Calcium (Lipitor -) 10 mg PO HS [facility] Last Admin: 11/18/18 21:36 Dose: 10 mg Heparin Sodium (Porcine) (Heparin -) 5,000 unit SQ TID [facility] Last Admin: 11/18/18 21:36 Dose: 5,000 unit Losartan Potassium (Cozaar -) 100 mg PO DAILY [facility] Last Admin: 11/18/18 09:13 Dose: Not Given Fluticasone/Salmeterol (Advair 100mcg/50mcg -) 1 puff IH BID [facility] Last Admin: 11/18/18 21:37 Dose: 1 puff - Objective Vital Signs: Vital Signs Temperature 99.1 F 11/19/18 01:53 Pulse Rate 98 H 11/19/18 01:53 Respiratory Rate 18 11/19/18 01:53 Blood Pressure 156/91 11/19/18 01:53 O2 Sat by Pulse Oximetry (%) 94 L 11/18/18 21:00 Constitutional: Yes: Anxious, Thin Eyes: Yes: WNL HENT: Yes: WNL Neck: Yes: WNL Cardiovascular: Yes: S1, S2 (split) Respiratory: Yes: WNL Gastrointestinal: Yes: Soft ...Rectal Exam: Yes: Deferred Genitourinary: Yes: Anuria Breast(s): Yes: WNL Extremities: Yes: WNL Edema: No Peripheral Pulses WNL: Yes Integumentary: Yes: WNL Neurological: Yes: Confusion, Weakness Psychiatric: Yes: Other (dementia) Labs: CBC, BMP 11/18/18 05:30 11/18/18 05:30 - ....Imaging Ultrasound: Image Reviewed (ECHO) Problem List - Problems (1) Falls Assessment/Plan: r/o syncope. Hx neuropathy. F/u orthostatic vital signs. Avoid dehydration. ECHO: normal LVEF. Carotid artery US: moderate left ICA stenosis. Code(s): W19.XXXA - UNSPECIFIED FALL, INITIAL ENCOUNTER (2) History of permanent cardiac pacemaker placement Code(s): Z95.0 - PRESENCE OF CARDIAC PACEMAKER (3) Neuropathy Code(s): G62.9 - POLYNEUROPATHY, UNSPECIFIED (4) COPD (chronic obstructive pulmonary disease) Code(s): J44.9 - CHRONIC OBSTRUCTIVE PULMONARY DISEASE, UNSPECIFIED (5) HTN (hypertension) Assessment/Plan: on losartan 100 mg and amlodipine 10 mg daily; may require an additional class, but caution in view of falls (f/u orthosatic vital signs). Code(s): I10 - ESSENTIAL (PRIMARY) HYPERTENSION (6) Hyperlipidemia Assessment/Plan: f/u lipid panel. on atorvastatin. Code(s): E78.5 - HYPERLIPIDEMIA, UNSPECIFIED (7) Dementia Code(s): F03.90 - UNSPECIFIED DEMENTIA WITHOUT BEHAVIORAL DISTURBANCE (8) Prostate CA Code(s): C61 - MALIGNANT NEOPLASM OF PROSTATE
[2018-11-19] MEDS: HEPARIN NA (PORCINE) 5,000 UNITS/ML 1ML VIAL SQ SCH ×2 (06:32→22:00)
[2018-11-19 08:07] LABS: ANION GAP 12 MMOL/L (8-16); BLOOD UREA NITROGEN 27 mg/dL (7-18); CALCIUM 8.5 mg/dL (8.5-10.1); CHLORIDE 108 mmol/L (98-107); CO2 21 mmol/L (21-32); CREATININE 1.2 mg/dL (0.55-1.3); GLUCOSE,RANDOM 129 mg/dL (74-106); MAGNESIUM 2.4 mg/dL (1.8-2.4); PHOSPHOROUS 3.9 mg/dL (2.5-4.9); POTASSIUM 3.8 mmol/L (3.5-5.1); SODIUM 141 mmol/L (136-145)
--- NOTE | 2018-11-19 09:06 | PN ---
Physical Exam: SUBJECTIVE: Patient seen and examined this AM. He states he is not doing as well today but that he is unable to explain why. When asked if he is having pain , he states he is having some pain in his lower abdomen and legs. He states that he has urinated some but not a lot. He is unable to say if he has any history of urinary retention. OBJECTIVE: Vital Signs Period Temp Pulse Resp BP Sys/Dale Pulse Ox Last 24 Hr 97.8 F-99.1 F 80-98 18-20 154-192/70-91 94 GENERAL: Alert, oriented only to self, no acute distress HEAD: Normocephalic, atraumatic. EYES: PERRL, no scleral icterus EARS, NOSE, THROAT: oropharynx clear without exudates. Moist mucous membranes. NECK: supple without lymphadenopathy LUNGS: CTA b/l, no crackles or wheezes HEART: Regular rate and rhythm, normal S1 and S2 without murmur ABDOMEN: Soft, nontender to palpation, normoactive bowel sounds MUSCULOSKELETAL: No bony deformities or tenderness. EXTREMITIES: 2+ pulses, warm, well-perfused. No peripheral edema. NEUROLOGICAL: Cranial nerves II-XII grossly intact. Normal speech. PSYCHIATRIC: Cooperative. Good eye contact. Appropriate mood and affect. SKIN: Warm, dry, no rashes or lesions noted Laboratory Results - last 24 hr 11/19/18 05:30 Sodium 141 Potassium 3.8 Chloride 108 H Carbon Dioxide 21 Anion Gap 12 BUN 27 H Creatinine 1.2 Creat Clearance w eGFR 57.68 Random Glucose 129 H Calcium 8.5 Phosphorus 3.9 Magnesium 2.4 Active Medications Generic Name Dose Route Start Last Admin Trade Name Joséq PRN Reason Stop Dose Admin Amlodipine Besylate 10 mg 11/18/18 17:15 Norvasc - PO DAILY [facility] Aspirin 81 mg 11/16/18 10:00 11/18/18 09:12 Asa - PO 81 mg DAILY [facility]Y Administration Atorvastatin Calcium 40 mg 11/19/18 22:00 Lipitor - PO HS MONTY Heparin Sodium (Porcine) 5,000 unit 11/17/18 14:00 11/19/18 06:32 Heparin - SQ 5,000 unit TID [facility]ONTY Administration Losartan Potassium 100 mg 11/16/18 10:00 11/18/18 09:13 Cozaar - PO Not Given DAILY [facility]Y Fluticasone/Salmeterol 1 puff 11/16/18 10:00 11/18/18 21:37 Advair 100mcg/50mcg - IH 1 puff BID MONTY Administration ASSESSMENT/PLAN: 83yo man brought in the ED after multiple falls at home. Physical exam and imaging studies unremarkable for signs of trauma. Falls likely mechanical in nature. Repeated Falls -Pt with numerous repeated falls, likely mechanical in nature -PT eval recommended SNF for rehab -Extensive imaging negative for fracture or IC bleed -Cardiology consult appreciated -Carotid US with atherosclerosis on left 60-79% -Carotid atherosclerosis unlikely causing syncope or symptoms -Vascular Surgery consult, no surgical intervention at this time, repeat carotid US in 6 months -ECHO normal LV size, function, EF Urinary Retention -tender full bladder noted this AM on exam -Bladder scan with 676 -Straight cath once -Flomax 0.4 mg PO Daily -Finasteride 5 mg PO Daily -Monitor for further retention HTN -Currently uncontrolled -Norvasc 10 mg PO Daily (increased from 5 mg PO Daily) -Losartan 100 mg PO Daily -Will monitor and increase as needed COPD -Advair 1 puff BID DVT Prophylaxis -Heparin 5000 units SQ BID FEN -Fluids: none -Electrolytes: No electrolyte abnormalities, BMP in AM -Nutrition: Na controlled diet Disposition Telemetry Visit type - Emergency Visit Emergency Visit: Yes ED Registration Date: 11/17/18 Care time: The patient presented to the Emergency Department on the above date and was hospitalized for further evaluation of their emergent condition. - New Patient This patient is new to me today: No - Critical Care Critical Care patient: No
[2018-11-19] MEDS ORDERED: POTASSIUM CHLORIDE TABS 20 MEQ TABLET.ER (FP) PO ONE (09:30)
[2018-11-19] MEDS: amLODIPine BESYLATE 10 MG TABLET (FP) PO SCH (10:11)
[2018-11-19] MEDS: ASPIRIN 81 MG CHEWABLE TABLETS PO SCH (10:11)
[2018-11-19] MEDS: FLUTICASONE/SALMETEROL 100 MCG/50 MCG DISKUS IH SCH ×2 (10:11→22:00)
[2018-11-19] MEDS: LOSARTAN POTASSIUM 50 MG TABLET (FP) PO SCH (10:11)
[2018-11-19 13:21] LABS: URINE APPEARANCE CLEAR; URINE BILIRUBIN NEGATIVE (<2.0 mg/dL); URINE COLOR YELLOW; URINE GLUCOSE (UA) NEGATIVE (NEGATIVE); URINE KETONE NEGATIVE (NEGATIVE); URINE LEUK ESTERASE NEGATIVE (NEGATIVE); URINE NITRITE NEGATIVE (NEGATIVE); URINE PROTEIN NEGATIVE (NEGATIVE); URINE UROBILINOGEN NEGATIVE mg/dL (0.2-1.0)
[2018-11-19 13:43] LABS: EPI CELLS RARE /HPF (FEW); URINE MUCUS RARE
--- NOTE | 2018-11-19 15:39 | PN ---
Teaching Attending Note Name of Resident: Ventura Romero ATTENDING PHYSICIAN STATEMENT I saw and evaluated the patient. I reviewed the resident's note and discussed the case with the resident. I agree with the resident's findings and plan as documented. SUBJECTIVE: UBJECTIVE: evaluated the patient today, he has no complaints at this time. He has dementia and keeps on asking if he could walk to the bathroom. OBJECTIVE: in no distress very pleasant and well kept elderly M. MMM No ocular discharge No nasal discharge CVS:S1S2 CTAB Abd:BS+, NT/ND EXT: no edema alert, oriented to person and place Last Vital Signs Temp Pulse Resp BP Pulse Ox 98.1 F 86 18 149/62 94 L 11/19/18 15:06 11/19/18 15:06 11/19/18 15:06 11/19/18 15:06 11/18/18 21:00 Current Medications Generic Name Dose Route Start Last Admin Trade Name Freq PRN Reason Stop Dose Admin Amlodipine Besylate 10 mg 11/18/18 17:15 11/19/18 10:11 Norvasc - PO 10 mg DAILY MONTY Administration Aspirin 81 mg 11/16/18 10:00 11/19/18 10:11 Asa - PO 81 mg DAILY MONTY Administration Atorvastatin Calcium 40 mg 11/19/18 22:00 Lipitor - PO HS MONTY Heparin Sodium (Porcine) 5,000 unit 11/19/18 22:00 Heparin - SQ BID MONTY Losartan Potassium 100 mg 11/16/18 10:00 11/19/18 10:11 Cozaar - PO 100 mg DAILY MONTY Administration Fluticasone/Salmeterol 1 puff 11/16/18 10:00 11/19/18 10:11 Advair 100mcg/50mcg - IH 1 puff BID MONTY Administration Tamsulosin HCl 0.4 mg 11/20/18 08:30 Flomax - PO DAILY@0830 MOTNY CBCD WBC 8.7 K/mm3 (4.0-10.0) 11/18/18 05:30 RBC 4.35 M/mm3 (4.00-5.60) 11/18/18 05:30 Hgb 12.8 GM/dL (11.7-16.9) 11/18/18 05:30 Hct 39.1 % (35.4-49) 11/18/18 05:30 MCV 90.0 fl (80-96) 11/18/18 05:30 MCHC 32.7 g/dl (32.0-35.9) 11/18/18 05:30 RDW 14.3 % (11.9-15.9) 11/18/18 05:30 Plt Count 234 K/MM3 (134-434) 11/18/18 05:30 MPV 10.5 fl (7.5-11.1) 11/18/18 05:30 CMP Sodium 141 mmol/L (136-145) 11/19/18 05:30 Potassium 3.8 mmol/L (3.5-5.1) 11/19/18 05:30 Chloride 108 mmol/L (98-107) H 11/19/18 05:30 Carbon Dioxide 21 mmol/L (21-32) 11/19/18 05:30 Anion Gap 12 MMOL/L (8-16) 11/19/18 05:30 BUN 27 mg/dL (7-18) H 11/19/18 05:30 Creatinine 1.2 mg/dL (0.55-1.3) 11/19/18 05:30 Creat Clearance w eGFR 57.68 (>60) 11/19/18 05:30 Random Glucose 129 mg/dL (74-106) H 11/19/18 05:30 Calcium 8.5 mg/dL (8.5-10.1) 11/19/18 05:30 Total Bilirubin 0.8 mg/dL (0.2-1) 11/17/18 09:15 AST 15 U/L (15-37) 11/17/18 09:15 ALT 26 U/L (13-61) 11/17/18 09:15 Alkaline Phosphatase 80 U/L (45-117) 11/17/18 09:15 Total Protein 6.1 g/dl (6.4-8.2) L 11/17/18 09:15 Albumin 3.1 g/dl (3.4-5.0) L 11/17/18 09:15 CARDIAC ENZYMES Creatine Kinase 155 IU/L (26-308) 11/15/18 23:50 Troponin I 0.03 ng/ml (0.00-0.05) 11/15/18 23:50 ASSESSMENT AND PLAN: Was found to have urinary obstruction, likely in the setting of being off his medication and likely constipation, will start of tamsulosin also evaluate for constipation, will put a bedside comode. if fails to urinate by 8 pm tonight should get another bedside bladder scan and keep the walker in for 2 more days. HEDY: in the setting of post renal obstruction will monitor tomorrow Fall: mechanical: PT eval is to go to [facility] for unsteady gait dementia: C/W home medication carotid stenosis: evaluated by surgery. no intervention indicated at this time.is on aspiring and statin HTN: is on losartan,amlodipine DC IVF and encouagre PO intake, HEDY likely in the setting of Dispo': [facility]
[2018-11-19] MEDS: FINASTERIDE 5 MG TABLET (FP) PO SCH (18:11)
[2018-11-19] MEDS ORDERED: PT OWN MED DRAWER 7, Y5N ONE (21:09)
[2018-11-19] MEDS ORDERED: ATORVASTATIN CA 40 MG TABLET (FP) PO SCH (22:00)
[2018-11-19] MEDS ORDERED: MEMANTINE HCL PO SCH (22:00)
[2018-11-19] MEDS ORDERED: [UNRECOGNIZED DRUG - OTHER] PO SCH (22:00)
[2018-11-19] MEDS ORDERED: DONEPEZIL HCL PO SCH (22:00)
[2018-11-20 08:02] LABS: ANION GAP 8 MMOL/L (8-16); BLOOD UREA NITROGEN 39 mg/dL (7-18); CALCIUM 8.5 mg/dL (8.5-10.1); CHLORIDE 112 mmol/L (98-107); CO2 24 mmol/L (21-32); CREATININE 1.4 mg/dL (0.55-1.3); GLUCOSE,RANDOM 111 mg/dL (74-106); MAGNESIUM 2.4 mg/dL (1.8-2.4); PHOSPHOROUS 3.8 mg/dL (2.5-4.9); POTASSIUM 4.1 mmol/L (3.5-5.1); SODIUM 144 mmol/L (136-145)
[2018-11-20] MEDS ORDERED: TAMSULOSIN HCL 0.4 MG CAP PO SCH (08:30)
[2018-11-20] MEDS ORDERED: MULTIVITAMINS (DAILY MVI) TABLET (FP) PO SCH (10:00)
[2018-11-20] MEDS ORDERED: LACTOBACILLUS ACIDOPHILUS 1 TABLET PO SCH (10:00)
[2018-11-20] MEDS: LOSARTAN POTASSIUM 50 MG TABLET (FP) PO SCH (11:28)
[2018-11-20] MEDS: ASPIRIN 81 MG CHEWABLE TABLETS PO SCH (11:28)
[2018-11-20] MEDS: FINASTERIDE 5 MG TABLET (FP) PO SCH (11:29)
[2018-11-20] MEDS: amLODIPine BESYLATE 10 MG TABLET (FP) PO SCH (11:29)
[2018-11-20] MEDS: HEPARIN NA (PORCINE) 5,000 UNITS/ML 1ML VIAL SQ SCH (11:29)
[2018-11-20] MEDS: FLUTICASONE/SALMETEROL 100 MCG/50 MCG DISKUS IH SCH (11:30)
[2018-11-20] MEDS ORDERED: BISACODYL 5 MG TABLET.DR (FP) PO ONE (12:00)
[2018-11-20] MEDS ORDERED: MAG HYDROX/AL HYDROX/SIMETH 30 ML UNIT-DOSE CUP PO PRN (12:00)
[2018-11-20] MEDS ORDERED: TAMSULOSIN HCL 0.4 MG CAP PO ONE (13:00)
--- NOTE | 2018-11-20 14:44 | DS ---
Physical Exam: SUBJECTIVE: He is in no distress at this time. since 2 days ago he has developed urinary retention in the setting of combination of constipation and being off of his tamsulosin. walker was placed with plan for removal in 2 days 11/22/2018 for TOV. OBJECTIVE: Vital Signs Period Temp Pulse Resp BP Sys/Dale Pulse Ox Last 24 Hr 98.1 F-98.7 F 78-94 18-18 137-149/61-77 94 PHYSICAL EXAM GENERAL: The patient is awake, alert oriented to person and place but not time.in no acute distress. HEAD: Normal with no signs of trauma. EYES: PERRL, extraocular movements intact, sclera anicteric, conjunctiva clear. ENT: Ears normal, nares patent, oropharynx clear without exudates, moist mucous membranes. NECK: Trachea midline, full range of motion, supple. LUNGS: Breath sounds equal, clear to auscultation bilaterally, no wheezes, no crackles, no accessory muscle use. HEART: Regular rate and rhythm, S1, S2 ABDOMEN: Soft, nontender, nondistended, normoactive bowel sounds, no guarding, no rebound, no hepatosplenomegaly, no masses., has walker in place EXTREMITIES: 1+ pulses, warm, well-perfused, no edema. LABS Laboratory Results - last 24 hr 11/20/18 06:00 Sodium 144 Potassium 4.1 Chloride 112 H Carbon Dioxide 24 Anion Gap 8 BUN 39 H Creatinine 1.4 H Creat Clearance w eGFR 48.28 Random Glucose 111 H Calcium 8.5 Phosphorus 3.8 Magnesium 2.4 HOSPITAL COURSE: Date of Admission:11/17/18 Date of Discharge: 11/20/18 83 year old male with Dementia (Vascular vs. Alzheimers), HTN, COPD (not on home O2), Prostate CA (s/p resection), neuropathy, sick sinus syndrome (s/p pacemaker placement), recurrent UTI's dyslipidemia brought in by ambulance after fall at home x3 on 11/15. Upon questioning, patient says his right leg was giving him issues. Denied LOC. At baseline is ambulatory with walker. the W/ u was negative for any cardiac etiology of the event and he was evaluated by PT for unsteady gait and qualified to go to [facility]. During the hospitalization he developed urinary retention in the setting of constipation, immobility and being off tamsulosin and walker placed on 11/20 with plan for bowel regimen and reinitiation of flomax and TOV on 11/22/2018. Patient does not have chronic walker. Minutes to complete discharge: 45 Discharge Summary Reason For Visit: RECURRENT FALLS Current Active Problems COPD (chronic obstructive pulmonary disease) (Acute) Dementia (Acute) Falls (Acute) HTN (hypertension) (Acute) History of permanent cardiac pacemaker placement (Acute) Hyperlipidemia (Acute) Neuropathy (Acute) Prostate CA (Acute) Condition: Good - Instructions Diet, Activity, Other Instructions: You were admitted for repeated falls. You were evaluated for possible causes of syncope. The Ultrasound of your heart was normal. An ultrasound of your carotid arteries showed some blockage, however you were seen by vascular surgery who recommended 6 month follow up with no acute intervention at this time. You are currently medically safe for discharge from the hospital, though need further rehab to increase your strength and ability to ambulate. You should continue all of your home medications as they were prescribed prior to this hospitalization You should follow up with a primary care physician here. As you have just moved here, the [facility] information has been included in case you cannot find one. You should also follow up with Vascular surgery in 6 months for a repeat ultrasound of your carotid arteries. A few names of neurologists have been included in your discharge packet in order for you to follow up as well. If you have any repeated falls, or any concerning symptoms Disposition: LONGTERM FACILITY - Home Medications Comprehensive Discharge Medication List: Ambulatory Orders Amlodipine Besylate [Norvasc -] 5 mg PO DAILY 11/19/18 Aspirin [ASA -] 81 mg PO DAILY 11/19/18 Atorvastatin Ca [Lipitor] 10 mg PO HS 11/19/18 Cyanocobalamin (Vitamin B-12) [Vitamin B12] 2,500 mcg PO BID 11/19/18 Finasteride 5 mg PO DAILY 11/19/18 Lactobacillus Acidophilus [Acidophilus] 1 each PO DAILY 11/19/18 Losartan Potassium 100 mg PO DAILY 11/19/18 Memantine HCl/Donepezil HCl [Namzaric 14 mg-10 mg Capsule] 1 each PO HS Multivit-Min/Folic/Vit K/Lycop [Men's Multivitamin Tablet] 1 each PO DAILY 11/19 Salmeterol/Fluticasone [Advair 100Mcg/50Mcg -] 2 puff IH BID 11/19/18 Tamsulosin HCl [Flomax] 0.4 mg PO DAILY 11/19/18 This patient is new to me today: No Emergency Visit: No Critical Care patient: No - Discharge Referral Referred to [facility] No
[2018-11-20 15:20] VITALS: BP 142/58; PULSE 84; TEMP 97.8
[2018-11-21] MEDS ORDERED: TAMSULOSIN HCL 0.4 MG CAP PO SCH (08:30)
== END 2018-11-20 17:15 | DRG 57 ==
LOC: JER 22:48 → JERBED 11-16 01:51 → J4W 11-16 07:05 → OBSVTOIN 11-17 11:34 → J7W 11-19 10:25
PROVIDERS: ADMIT Internal Medicine; ATTEND Internal Medicine
DX: G30.9 Alzheimer's disease, unspecified (principal); N17.9 Acute kidney failure, unspecified; G62.9 Polyneuropathy, unspecified; I25.10 Atherosclerotic heart disease of native coronary artery without angina pectoris; F03.90 Unspecified dementia, unspecified severity, without behavioral disturbance, psychotic disturbance, mood disturbance, and anxiety; J44.9 Chronic obstructive pulmonary disease, unspecified; I10 Essential (primary) hypertension; E78.5 Hyperlipidemia, unspecified; C61 Malignant neoplasm of prostate; R33.9 Retention of urine, unspecified; K59.00 Constipation, unspecified; I65.29 Occlusion and stenosis of unspecified carotid artery; Z95.0 Presence of cardiac pacemaker; R26.89 Other abnormalities of gait and mobility
CPT/HCPCS: 36415; 70450-TC; 71045-TC-FY; 72125-TC; 73590-TC-RT-FY; 73610-TC-RT-FY; 73630-TC-RT-FY; 74018-TC-FY; 76856-TC; 80048; 80053; 81003; 81015; 82550; 82553; 83735; 84100; 84484; 85025; 85027; 87086; 93005; 93010; 93306-TC; 93880-TC; 97116-GP; 97161-GP; 99284-25; G0378; J1644; J7030